=== PATIENT | female | born 1975 | race Caucasian/White ===

== ENCOUNTER 2022-01-05 03:20 | Emergency (ER) | payer BC | END 2022-01-05 07:45 | disposition home or self-care (01) | LOC: JD.ED 03:20 | DX: R07.9 Chest pain, unspecified (principal) | CPT/HCPCS: 36415; 71045; 71045-26; 76705; 76705-26; 80053; 83690; 83735; 83880; 84484; 85025; 85379; 85610; 85730; 93005; 99285 ==